=== PATIENT | male | born 1980 ===

== ENCOUNTER → 2025-03-19 08:14 | Outpatient (REF) | payer OTHER, SELFPAY | LOC: DHSLP 08:14 | PROVIDERS: ATTENDING PHYSICIAN Internal Medicine | DX: G47.19 Other hypersomnia (principal); R06.83 Snoring | CPT/HCPCS: 95800 ==

== ENCOUNTER → 2025-05-08 14:44 | Outpatient (REF) | payer OTHER, SELFPAY | LOC: DHSLP 14:44 | PROVIDERS: ATTENDING PHYSICIAN Internal Medicine | DX: G47.00 Insomnia, unspecified (principal); R06.83 Snoring | CPT/HCPCS: 95810 ==